=== PATIENT | male | born 1990 | race Caucasian/White ===

== ENCOUNTER 2018-09-26 13:55 | Emergency (ER) | payer SELFPAY ==
--- OUTSIDE RECORDS SUMMARY | 2018-09-26 13:58 | XMS REPORT | Summary of Care ---
Author Author [facility] Organization [facility] Address Unknown Phone Unavailable Encounter [facility](FIN) [phone] Date(s): 12/23/17 - 01/21/[address] [phone] Encounter Diagnosis Unspecified cleft palate with unilateral cleft lip (Final) - 01/28/18 Other specified postprocedural states (Final) - Discharge Disposition: Home or Self Care Attending Physician: Thomas Mcdermott DDS, MD Referring Physician: Thomas Mcdermott DDS, MD Vital Signs Most recent to 1 oldest [Reference Range]: Blood Pressure 123/82 mmHg [90-140/60-90 mmHg] (12/23/17 12:47 PM) Respiratory Rate 18 BRMIN [14-20 BRMIN] (12/23/17 12:47 PM) Peripheral Pulse 78 bpm Rate [60-100 bpm] (12/23/17 12:47 PM) Weight 123.182 kg (12/23/17 12:47 PM) Problem List No data available for this section Allergies, Adverse Reactions, Alerts Substance Reaction Severity Status penicillins Active Medications No data available for this section Results No data available for this section Immunizations No data available for this section Procedures No data available for this section Social History Social History Type Response Substance Abuse Use: Current. Type: Marijuana. Smoking Status Current every day smoker; Type: Cigarettes; Exposure to Tobacco Smoke self; Cigarette Smoking Last 365 Days Yes; Reg Smoking Cessation Counseling No entered on: 12/23/17 Assessment and Plan No data available for this section
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
== END 2018-09-26 14:10 | disposition short-term general hospital (02) ==
LOC: FSED 13:55
DX: S69.90XA Unspecified injury of unspecified wrist, hand and finger(s), initial encounter (principal)